=== PATIENT | male | born 1950 | race Caucasian/White ===

== ENCOUNTER 2018-10-28 06:50 | Day surgery (SDC) | payer OTHER ==
[2018-10-27 09:19] VITALS: BMI 28.5
[2018-10-28] MEDS ORDERED: MIDAZOLAM HCL 2 MG/2 ML SINGLE DOSE VIAL ONE (08:00)
[2018-10-28] MEDS ORDERED: PROPOFOL 20 ML ONE ×2 (08:02)
[2018-10-28] MEDS ORDERED: LIDOCAINE HCL/PF 2% SDV 5ML VIAL ONE (08:02)
[2018-10-28] MEDS ORDERED: GENTAMICIN SO4 80 MG/2 ML VIAL IVPB ONE (08:20)
[2018-10-28] MEDS ORDERED: ceFAZolin SODIUM 1 GM VIAL ONE (08:21)
[2018-10-28] MEDS ORDERED: GENTAMICIN SO4 80 MG/2 ML VIAL ONE (08:21)
[2018-10-28] MEDS ORDERED: ceFAZolin SODIUM 1 GM VIAL IVPB ONE (08:23)
[2018-10-28] MEDS ORDERED: DEXAMETHASONE SOD PHOSPHATE 4 MG/1 ML VIAL ONE (08:30)
[2018-10-28] MEDS ORDERED: oxyCODONE HCL 5 MG TABLET PO PRN (09:12)
--- NOTE | 2018-10-28 09:14 | OP ---
Operative Note - Note: Operative Date: 10/28/18 Pre-Operative Diagnosis: BPH with freq Operation: cysto/bipolar TURVP Findings: BPH Post-Operative Diagnosis: Same as Pre-op Surgeon: Galileo Gotti Anesthesiologist/DEPARTMENT HEAD: Kat Levy Anesthesia: General Estimated Blood Loss (mls): 25
[2018-10-28] MEDS ORDERED: DEXTROSE 5%-0.45% SALINE 1,000 ML IV SCH (09:15)
[2018-10-28] MEDS ORDERED: IBUPROFEN 800 MG/8 ML IJ IVPB PRN (09:23)
[2018-10-28] MEDS ORDERED: ONDANSETRON 4 MG/2 ML VIAL IVPUSH PRN (09:23)
[2018-10-28] MEDS ORDERED: LACTATED RINGERS SOLUTION 1,000 ML IV SCH (09:30)
--- NOTE | 2018-10-28 09:46 | OP ---
DATE OF OPERATION: 10/28/2018 PREOPERATIVE DIAGNOSIS: Benign prostatic hypertrophy with urinary frequency. POSTOPERATIVE DIAGNOSIS: Benign prostatic hypertrophy with urinary frequency. PROCEDURE: Cystoscopy, bipolar transurethral vaporization of the prostate. SURGEON: Luanne Street MD INDICATIONS: Patient is a 67-year-old male with BPH and bothersome urinary symptoms, failed medical therapy. After reviewing treatment options, patient elected to undergo bipolar transurethral vaporization of the prostate. Risks, benefits, and alternatives were discussed including risks of bleeding, infection, impotence, incontinence, stricture formation, potential need for additional procedure, potential persistence of voiding symptoms, potential injury to adjacent organs. DESCRIPTION OF PROCEDURE: After informed consent was obtained, the patient was taken to the OR and placed supine on the OR table. With cardiac monitoring administered and general anesthesia established, he was prepped and draped in dorsal lithotomy position. He was given 2 g of Ancef and 80 of gentamicin. The 26-sheath resectoscope was inserted into the urethra without difficulty with the visual obturator. The meatus was slightly narrowed as well as a small area of narrowing in bulbar urethra, but the scope could be advanced. The prostatic urethra was 4 cm and visually occlusive with a high bladder neck. The bladder was visualized. No tumors or stones noted in the bladder. At this point then, using the rollerball electrode, the prostate tissue was vaporized circumferentially starting at the bladder neck and ending approximately 1 cm proximal to the verumontanum to minimize the chance of incontinence. This was carried on until a wide open channel was created. Whatever prostate chips that were created were irrigated and sent to Pathology for analysis. All bleeding sites were fulgurated. With the resectoscope situated just past the verumontanum looking into the bladder, a wide-open channel was created. There was no injury to ureteral orifices. Both ureteral orifice were seen with good efflux. At this point, resectoscope was then removed, and a 24-[place] 3-way [place] was then placed to straight drainage. [place]-tinged urine was retrieved. Therefore, CBI did not have to be started. Patient was then awoken from anesthesia and transferred to the recovery room in stable condition. There were no complications. Estimated blood loss was minimal. LUANNE STREET M.D. [id number]
[2018-10-28 11:33] VITALS: TEMP 97.6
[2018-10-28 13:34] VITALS: BP 144/79; PULSE 82
--- NOTE | 2018-10-29 18:46 | PATH ---
Surgical Pathology Report Patient Name: DAPHNIE ANTHONY [facility]. Rec. #: [id number] /Age/Gender: 1950 (Age: 67) / M Account: [id number] Location: [facility] Taken: 10/28/2018 Received: 10/28/2018 Reported: 10/29/2018 Physicians: Galileo Gotti M.D. Specimen(s) Received PROSTATE CHIPS Clinical History BPH Final Diagnosis PROSTATE CHIPS, BIPOLAR TRANSURETHRAL RESECTION OF PROSTATE: BENIGN PROSTATIC TISSUE WITH MILD GLANDULAR AND MILD STROMAL HYPERPLASIA. Electronically Signed Padmini Sr M.D. Gross Description Received in formalin labeled "prostate chips," is a less than 1 g, 1.5 x 1.1 x 0.3 cm aggregate of shaw soft tissue fragments. The formalin is filtered and the specimen is entirely submitted in one cassette. /10/28/2018 saudi10/28/2018
== END 2018-10-28 12:10 | disposition home or self-care (01) ==
LOC: JASU-SURG 06:50
PROVIDERS: ATTEND Urology
PROC: 0TJB8ZZ Inspection of Bladder, Via Natural or Artificial Opening Endoscopic (ICD-10-PCS; 2018-10-28)
PROC: 0VT08ZZ Resection of Prostate, Via Natural or Artificial Opening Endoscopic (ICD-10-PCS; principal; 2018-10-28 08:00)
DX: N40.1 Benign prostatic hyperplasia with lower urinary tract symptoms (principal); R35.0 Frequency of micturition
CPT/HCPCS: 88305-TC; 94760

== ENCOUNTER 2019-08-02 07:29 | Day surgery (SDC) | payer OTHER ==
[2019-08-01 13:00] VITALS: BMI 27.8
[~2019-08-02 07:29] MED LIST: LIDOCAINE HCL 1%, 10 MG/ML (20ML VIAL) INF ONE
[2019-08-02] MEDS ORDERED: MIDAZOLAM HCL 2 MG/2 ML SINGLE DOSE VIAL ONE (08:22)
[2019-08-02] MEDS ORDERED: LIDOCAINE HCL/PF 2% SDV 5ML VIAL ONE (08:25)
[2019-08-02] MEDS ORDERED: PROPOFOL 20 ML ONE (08:25)
[2019-08-02] MEDS ORDERED: LIDOCAINE HCL 1%, 10 MG/ML (20ML VIAL) INF ONE ×2 (08:31)
[2019-08-02] MEDS ORDERED: BACITRACIN 50,000 UNITS VIAL TP ONE (08:37)
[2019-08-02] MEDS ORDERED: BACITRACIN 15 GM TUBE TOPICAL OINTMENT ONE (08:56)
[2019-08-02] MEDS ORDERED: ONDANSETRON 4 MG/2 ML VIAL IVPUSH PRN (09:03)
[2019-08-02] MEDS ORDERED: oxyCODONE HCL 5 MG TABLET PO PRN ×2 (09:03→09:05)
--- NOTE | 2019-08-02 09:07 | OP ---
Operative Note - Note: Operative Date: 08/02/19 Pre-Operative Diagnosis: malfunction rt sided interstim implant Operation: removel rt sided implant Post-Operative Diagnosis: Same as Pre-op Anesthesia: General Specimens Removed: interstim implant Operative Report Dictated: Yes
[2019-08-02] MEDS ORDERED: LACTATED RINGERS SOLUTION 1,000 ML IV SCH (09:15)
[2019-08-02] MEDS ORDERED: DEXTROSE 5%-0.45% SALINE 1,000 ML IV SCH (09:15)
[2019-08-02 09:25] VITALS: TEMP 98.4
[2019-08-02 11:36] VITALS: BP 155/90; PULSE 84
--- NOTE | 2019-08-03 06:46 | OP ---
DATE OF OPERATION: 08/02/2019 PREOPERATIVE DIAGNOSIS: Malfunctioning right-sided InterStim device. POSTOPERATIVE DIAGNOSIS: Malfunctioning right-sided InterStim device. PROCEDURE: Removal of right-sided InterStim device. SURGEON: Luanne Street MD INDICATION: Patient is a 68-year-old male with MS and had bilateral InterStim implant approximately 3 months ago with good resolution of urinary symptoms. However, the right-sided device recently the pocket had been opened after patient sustained some trauma and falling and did not seem to completely heal and so it was determined that the device should be removed before patient would sustain a problem with chronic infections. DESCRIPTION OF PROCEDURE: After informed consent obtained patient taken to the OR and placed prone on the operating table. The right side of the buttock was prepped and draped in the standard surgical fashion. With the patient under IV sedation and cardiac monitoring local anesthetic was administered over the prior right buttock pocket incision site. The prior incision site was opened. The InterStim device battery and wire were removed. Then tugging on the InterStim wire a 2nd incision was created over the right side of the midline where the wire dived into the S3 foramen. The wire was seen at this point. It was grasped and pulled in its entirety so that the entire wire was removed from the S3 foramen. Inspection of the wire revealed the entire device removed with all onel leads intact. The entire device was then removed. The wound was irrigated with copious amounts of antibiotic irrigation and then attention turned to wound closure. Both midline and the pocket were closed with interrupted 2-0 chromic in a mattress fashion. Dry sterile dressing was then placed. The patient was awoken from anesthesia and transferred to the recovery room in stable condition. There were no complications. Estimated blood loss minimal. LUANNE STREET M.D. [id number]
--- NOTE | 2019-08-03 14:25 | PATH ---
Surgical Pathology Report Patient Name: DAPHNIE ANTHONY Med. Rec. #: [id number] /Age/Gender: 1950 (Age: 68) / M Account: [id number] Location: [facility] Taken: 08/02/2019 Received: 08/02/2019 Reported: 08/03/2019 Physicians: Galileo Gotti M.D. Specimen(s) Received REMOVED INTERSTIM DEVICE Clinical History Complication of genitourinary prosthetic device Final Diagnosis REMOVED INTERSTIM DEVICE: FOREIGN BODY, CONSISTENT WITH INTERSTIM DEVICE. Electronically Signed Kolby Szymanski M.D. Gross Description Received fresh labeled "removed interstim device," is a 5.0 x 4.3 x 0.7 cm bell metallic foreign body, consistent with a battery. The specimen has the following inscription: "[employer] InterStim II SN: [id number]." The specimen displays a 14 cm in length bell metallic portion of wire extending from one aspect. There is an additional 13 cm in length bell metallic portion of wire separately received within the same container. No soft tissue is present. No sections are submitted, gross only. DL/08/02/2019 saudi08/02/2019
== END 2019-08-02 11:10 | disposition home or self-care (01) ==
LOC: JASU-SURG 07:29
PROVIDERS: ATTEND Urology
PROC: 0JPT0MZ Removal of Stimulator Generator from Trunk Subcutaneous Tissue and Fascia, Open Approach (ICD-10-PCS; 2019-08-02)
PROC: 01PY0MZ Removal of Neurostimulator Lead from Peripheral Nerve, Open Approach (ICD-10-PCS; principal; 2019-08-02 08:30)
DX: T85.193A Other mechanical complication of implanted electronic neurostimulator, generator, initial encounter (principal); G35 Multiple sclerosis; Y82.8 Other medical devices associated with adverse incidents; Y92.9 Unspecified place or not applicable
CPT/HCPCS: 88300-TC